=== PATIENT | female | born 1965 | race Two or more races ===

== ENCOUNTER → 2021-02-25 | Outpatient (CLI) | payer OTHER | END | disposition home or self-care (01) | LOC: NUCLEAR 14:16 | PROVIDERS: ATTEND Internal Medicine | DX: M54.5 Low back pain (principal); Z13.820 Encounter for screening for osteoporosis; M81.0 Age-related osteoporosis without current pathological fracture ==

== ENCOUNTER 2022-08-01 16:56 | Emergency (ER) | payer OTHER ==
[~2022-08-01] VITALS: Ht 154.9 cm; Wt 65.8 kg
== END 2022-08-01 18:06 | disposition home or self-care (01) ==
LOC: ER 16:56
DX: M54.50 Low back pain, unspecified (principal)